=== PATIENT | female | born 1970 | race American Indian/Alaskan Native ===

== ENCOUNTER 2017-06-06 09:43 | Emergency (ER) | payer OTHER ==
[2017-06-06 11:14] LABS: BASO % 0.4 % (0.0-2.0); EOS # 0.1 K/uL (0.0-0.7); EOS % 1.7 % (0.0-4.0); LYMPH % 23.8 % (20.0-40.0); MEAN CELL VOLUME 88.4 fL (81.0-99.0); MEAN CORPUSCULAR HEMOGLOBIN 29.2 pg (27.0-31.0); MEAN CORPUSCULAR HGB CONC 33.1 g/dL (33.0-37.0); MEAN PLATELET VOLUME 8.7 fL (7.2-11.7); MONO # 0.4 K/uL (0.0-0.8); MONO % 5.3 % (0.0-10.0); RED CELL DISTRIBUTION WIDTH 14.7 % (11.5-14.5); WHITE BLOOD COUNT 8.2 K/uL (4.8-10.8)
--- NOTE | 2017-06-06 11:16 | C.PDOC ---
History Of Present Illness 46 yo female w/PMHx of asthma, sz ds, come in for evaluation of diffuse epigastric pain gradually developed for past 3-4 days radiating to back and associated with nausea, decrease appetite, constipation. Pt admits, was seen in ED at [place] 2 days ago, was given some medication without improvement. Pt also reports, difficulty urination and with pain on urination. Otherwise, pt denies fever, chills, headache, dizziness, neck pain, CP, SOB, dyspnea, diaphoresis, palpitation, vomiting, diarrhea, melena, vaginal irritation or discharges. Ambulate to ED for evaluation, appears in pain. Time Seen by Provider: 06/06/17 09:45 Chief Complaint (Nursing): Female Genitourinary History Per: Patient History/Exam Limitations: no limitations Onset/Duration Of Symptoms: Days (3-4) Past Medical History Reviewed: Historical Data, Nursing Documentation, Vital Signs Vital Signs: Last Vital Signs Temp 98.1 F 06/06/17 10:55 Pulse 77 06/06/17 16:05 Resp 18 06/06/17 16:05 BP 132/66 06/06/17 16:05 Pulse Ox 99 06/06/17 17:18 - Medical History PMH: Asthma, Seizures Family History: States: No Known Family Hx - Social History Hx Alcohol Use: No Hx Substance Use: No Review Of Systems Except As Marked, All Systems Reviewed And Found Negative. Constitutional: Negative for: Fever, Chills Cardiovascular: Negative for: Chest Pain, Palpitations Respiratory: Negative for: Shortness of Breath Gastrointestinal: Positive for: Nausea, Abdominal Pain (Epigastric), Constipation. Negative for: Vomiting, Diarrhea, Melena Genitourinary: Positive for: Dysuria. Negative for: Vaginal Discharge Musculoskeletal: Positive for: Back Pain (Radiating pain). Negative for: Neck Pain Neurological: Negative for: Headache, Dizziness Physical Exam - Physical Exam Appears: Well, Non-toxic, Other (in pain) Skin: Normal Color, Warm, Dry, No Rash Head: Normacephalic Eye(s): bilateral: PERRL Nose: No Flaring, No Discharge Oral Mucosa: Moist, No Drooling Throat: No Erythema, No Exudate, No Drooling Neck: Trachea Midline, Supple Cardiovascular: Rhythm Regular Respiratory: No Decreased Breath Sounds, No Accessory Muscle Use, No Stridor, No Wheezing Gastrointestinal/Abdominal: Soft, Tenderness (moderate epigastric), No Distention, No Guarding Back: No CVA Tenderness, Other (B/L flank tenderness) Extremity: Normal ROM, No Pedal Edema, No Deformity Neurological/Psych: Oriented x3, Normal Speech, Normal Motor, Normal Sensation, Normal Reflexes ED Course And Treatment - Laboratory Results Result Diagrams: 06/06/17 11:10 06/06/17 11:10 Lab Interpretation: Normal ECG: Interpreted By Me, Viewed By Me (and ED attending) ECG Rhythm: Sinus Rhythm Interpretation Of ECG: SR@81/min, sinus arrythmia, NAD, T wave inversion in III , no acute ST-T changes. Rate From EC (BPM) O2 Sat by Pulse Oximetry: 99 (RA) Pulse Ox Interpretation: Normal - CT Scan/US CT - Abd & Pelvis w/ IV Contrast Other Rad Studies (CT/US): Read By Radiologist, Radiology Report Reviewed CT/US Interpretation: PROCEDURE: CT Abdomen and Pelvis with contrast. HISTORY : epigastric pain r/o pancreatitis. COMPARISON: None. TECHNIQUE: Contrast dose: 100 mL visipaque. Radiation dose: Total exam DLP = 693 mGy-cm. This CT exam was performed using one or more of the following dose reduction techniques : Automated exposure control, adjustment of the mA and/or kV according to patient size, and/or use of iterative reconstruction technique. FINDINGS: LOWER THORAX: Unremarkable. LIVER: Diffuse fatty infiltration. No liver lesions or intrahepatic dilated ducts. GALLBLADDER AND BILE DUCTS: Moderately distended. No gross gallstones or pericholecystic fluid. No extra hepatic dilated ducts. PANCREAS: Unremarkable. No gross lesion or ductal dilatation. No peripancreatic inflammatory changes. No CT evidence of pancreatitis. SPLEEN : Unremarkable. ADRENALS: Unremarkable. No mass. KIDNEYS AND URETERS: Unremarkable. No hydronephrosis. No solid mass. VASCULATURE: Unremarkable. No aortic aneurysm. BOWEL: Moderate left and right stool retention. No obstruction. No gross mural thickening. APPENDIX: Not definitively identified. No pericecal inflammatory changes. PERITONEUM: Unremarkable. No free fluid. No free air. LYMPH NODES: Unremarkable. No enlarged lymph nodes. BLADDER: Unremarkable. REPRODUCTIVE: Enlarged heterogeneous and lobulated uterus -compatible with multiple fibroids. Probable physiologic small follicular changes in each ovary. BONES: No acute fracture. OTHER FINDINGS: No bowel containing hernias. IMPRESSION: No CT evidence of pancreatitis. Left and right stool retention. No mechanical obstruction. No bowel containing hernias. Nonvisualized appendix -no pericecal inflammatory changes suggested. Enlarged heterogeneous and lobulated uterus -compatible with multiple fibroids. Diffuse fatty liver US gallblader Other Rad Studies (CT/US): Radiology Report Reviewed CT/US Interpretation: HISTORY: epigastric/RUQ pain. COMPARISON: CT abdomen and pelvis with contrast performed 06/06/17. TECHNIQUE: Sonographic evaluation of the right upper quadrant of the abdomen. FINDINGS: LIVER: Measures 13.5 cm in length. Echogenic liver may be seen in setting of hepatic parenchymal disease or fatty infiltration. No focal hepatic mass identified. The main portal vein appears patent with normal directional flow. No intrahepatic bile duct dilatation. GALLBLADDER: No gallstones. No gallbladder wall thickening or pericholecystic edema. Negative sonographic Amaya's sign as assessed by the bellhop captain. COMMON BILE DUCT: Measures 3 mm. PANCREAS: Not well-visualized. RIGHT KIDNEY: Measures 9.3 x 3.6 x 4.4 cm. No obstructing calculus or hydronephrosis identified. AORTA: Limited visualization appears grossly unremarkable. IVC: Limited visualization appears grossly unremarkable. OTHER FINDINGS: None . IMPRESSION: Echogenic liver may be seen in setting of hepatic parenchymal disease or fatty infiltration. Progress Note: AT 12:01, Blood work review, high Lipase,Amylase noted. UA, CT abd/pelvis- pending. Hydartion with NS, NPO. Pt was OBS in ED for 7 hours. Pt reports moderate improvement in sx. On re-evaluation, pt is afebrile, hemodynamicaly stable. NOn-toxic. Tolerate PO well in ED. PUlseOx 100% RA. ENT: no acute findings. Neck: Supple, (-) JVD, (-) carotid bruits B/L. Lungs: CTA B/L, BS equal B/L. CVS: (+)S1S2, reg. ABd: benign, (-) guarding, (-) rebound, (-) localized tenderness. Neuorlogicaly intact. Results review and discussed with ED attending, pt has elevated pancreatic enzyme, no evidence of acute pancreatitis, gallstones. As per , pt is stable for discharge and outpt f/u now. Results review and discussed with patient via silent language interpretor. Pt understand and agrees with discharges. Pt advised to F/U with PMD, GI, NURSE OUTREACH CASE MANAGER for further eval and tx. return to ED if any worsening or new changes. Medical Decision Making Medical Decision Making: PLAN: * CT - Abd & Pelvis w/ IV Contrast * EKG * Troponin * CBC * CMP * Urinalysis * Toradol IVP * Sodium Chloride IV Disposition Counseled Patient/Family Regarding: Studies Performed, Diagnosis, Need For Followup, Rx Given - Disposition Referrals: [facility] at [facility] [Outside] [facility] [Outside] Disposition: HOME/ ROUTINE Disposition Time: 17:40 Condition: STABLE Additional Instructions: DIET RESTRICTION FOR 7 DAYS TAKE MEDICATION PRESCRIBED FOLLOW UP WITH PMD, NURSE OUTREACH CASE MANAGER FOR FURTHER EVALUATION AND TREATMENT. PELVIC/TRANSVAGINAL US RECOMMEND FOR FURTHER EVALUATION OF FIBRIOD. RETURN TO ED IF ANY WORSENING OR NEW CHANGES. Prescriptions: Levetiracetam 1,000 mg PO BID #600 ml Ondansetron [Zofran Odt] 4 mg PO BID #6 odt traMADol [Ultram] 50 mg PO TID #10 tab Instructions: Pancreatitis (ED), Uterine Fibroids (ED) Forms: [employer] (Filipino) - Clinical Impression Clinical Impression: Pancreatitis - PA / ANATOMIC PATHOLOGY ASSISTANT / Resident Statement MD/DO has reviewed & agrees with the documentation as recorded. - Scribe Statement The provider has reviewed the documentation as recorded by the Scribe Tia Proctor All medical record entries made by the Scribe were at my direction and personally dictated by me. I have reviewed the chart and agree that the record accurately reflects my personal performance of the history, physical exam, medical decision making, and the department course for this patient. I have also personally directed, reviewed, and agree with the discharge instructions and disposition.
[2017-06-06] MEDS ORDERED: Sodium Chloride 0.9% 1,000 ML IV ONE ×2 (11:21→16:23)
[2017-06-06 11:24] LABS: INR 0.9
[2017-06-06 11:25] VITALS: TEMP 98.1
[2017-06-06 11:39] LABS: ALKALINE PHOSPHATASE 89 U/L (38-126); ALT/SGPT 37 U/L (9-52); AST/SGOT 23 U/L (14-36); BILIRUBIN,TOTAL 0.5 mg/dL (0.2-1.3); BLOOD UREA NITROGEN 10 mg/dL (7-17); CALCIUM 7.9 mg/dl (8.6-10.4); CARBON DIOXIDE 27 mmol/L (22-30); CHLORIDE 103 mmol/L (98-107); GFR AFRICAN-AMERICAN > 60; GLUCOSE,RANDOM 99 mg/dL (65-105); POTASSIUM 3.9 mmol/L (3.6-5.2); SODIUM 137 mmol/L (132-148); TOTAL PROTEIN 8.9 g/dL (6.3-8.3)
[2017-06-06 11:46] LABS: ALB/GLOB RATIO 0.9 (1.0-2.1)
[2017-06-06 11:48] VITALS: RESP 18
[2017-06-06 12:12] LABS: AMYLASE 131 U/L (30-110)
[2017-06-06 13:40] LABS: RBC URINE 14 /hpf (0-3); URINE BILIRUBIN NEGATIVE (NEGATIVE); URINE BLOOD 3+ (NEGATIVE); URINE COLOR Yellow (YELLOW); URINE GLUCOSE (UA) NORMAL (Normal); URINE KETONE NEGATIVE (NEGATIVE); URINE LEUKOCYTE ESTERASE NEG Leu/uL (Negative); URINE PROTEIN NEGATIVE (NEGATIVE); URINE UROBILINOGEN NORMAL mg/dL (0.2-1.0); WBC URINE 5 /hpf (0-5)
[2017-06-06] MEDS ORDERED: Iodixanol 320 MG/ML 100 ML BOTTLE IV ONE (14:00)
--- NOTE | 2017-06-06 16:04 | CT ---
PROCEDURE: CT Abdomen and Pelvis with contrast HISTORY: epigastric pain r/o pancreatitis COMPARISON: None. TECHNIQUE: Contrast dose: 100 mL visipaque Radiation dose: Total exam DLP = 693 mGy-cm. This CT exam was performed using one or more of the following dose reduction techniques: Automated exposure control, adjustment of the mA and/or kV according to patient size, and/or use of iterative reconstruction technique. FINDINGS: LOWER THORAX: Unremarkable. LIVER: Diffuse fatty infiltration. No liver lesions or intrahepatic dilated ducts GALLBLADDER AND BILE DUCTS: Moderately distended. No gross gallstones or pericholecystic fluid. No extra hepatic dilated ducts PANCREAS: Unremarkable. No gross lesion or ductal dilatation. No peripancreatic inflammatory changes. No CT evidence of pancreatitis. SPLEEN: Unremarkable. ADRENALS: Unremarkable. No mass. KIDNEYS AND URETERS: Unremarkable. No hydronephrosis. No solid mass. VASCULATURE: Unremarkable. No aortic aneurysm. BOWEL: Moderate left and right stool retention. No obstruction. No gross mural thickening. APPENDIX: Not definitively identified. No pericecal inflammatory changes PERITONEUM: Unremarkable. No free fluid. No free air. LYMPH NODES: Unremarkable. No enlarged lymph nodes. BLADDER: Unremarkable. REPRODUCTIVE: Enlarged heterogeneous and lobulated uterus -compatible with multiple fibroids. Probable physiologic small follicular changes in each ovary BONES: No acute fracture. OTHER FINDINGS: No bowel containing hernias IMPRESSION: No CT evidence of pancreatitis. Left and right stool retention. No mechanical obstruction. No bowel containing hernias. Nonvisualized appendix -no pericecal inflammatory changes suggested. Enlarged heterogeneous and lobulated uterus -compatible with multiple fibroids Diffuse fatty liver
--- NOTE | 2017-06-06 17:21 | US ---
HISTORY: epigastric/RUQ pain COMPARISON: CT abdomen and pelvis with contrast performed 06/06/17 TECHNIQUE: Sonographic evaluation of the right upper quadrant of the abdomen. FINDINGS: LIVER: Measures 13.5 cm in length. Echogenic liver may be seen in setting of hepatic parenchymal disease or fatty infiltration. No focal hepatic mass identified. The main portal vein appears patent with normal directional flow. No intrahepatic bile duct dilatation. GALLBLADDER: No gallstones. No gallbladder wall thickening or pericholecystic edema. Negative sonographic Amaya's sign as assessed by the deportation officer. COMMON BILE DUCT: Measures 3 mm. PANCREAS: Not well-visualized. RIGHT KIDNEY: Measures 9.3 x 3.6 x 4.4 cm. No obstructing calculus or hydronephrosis identified. AORTA: Limited visualization appears grossly unremarkable. IVC: Limited visualization appears grossly unremarkable. OTHER FINDINGS: None . IMPRESSION: Echogenic liver may be seen in setting of hepatic parenchymal disease or fatty infiltration.
[2017-06-06 17:51] VITALS: BP 126/85; PULSE 82
[2017-06-06 17:53] VITALS: O2SAT 99
--- NOTE | 2017-06-06 20:48 | CARD ---
APPROVED REPORT EKG Measurement Heart [id number] <Conclusion> Normal sinus rhythm with sinus arrhythmia Normal ECG
== END 2017-06-06 18:13 | disposition home or self-care (01) ==
LOC: C.ER 09:43
DX: K85.90 Acute pancreatitis without necrosis or infection, unspecified (principal)
CPT/HCPCS: 74177; 76705; 80053; 81001; 82150; 83690; 84484; 84703; 85025; 85610; 85730; 87086; 93005; 96361; 96374; 99285; J1885; J7040; Q9967

== ENCOUNTER 2017-06-21 07:52 | Emergency (ER) | payer MEDICAID ==
[2017-06-21] MEDS ORDERED: Sodium Chloride 0.9% 1,000 ML IV ONE (08:20)
[2017-06-21 08:31] VITALS: O2SAT 100; BMI 27.4
--- NOTE | 2017-06-21 08:36 | C.PDOC ---
History Of Present Illness Patient brought to ER from outpatient registration, was scheduled to have transvaginal US. Patient states she went into the bathroom, where she smelled a strong cleaning chemical smell, became dizzy and passed out. She is c/o headache, dizziness, suprapubic pain (present prior to today). She denies chest pain, SOB, palpitations, vomiting. 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) Current Symptoms Are (Timing): Better Activity At Onset Of Symptoms: Standing Fall Associated With With Symptoms: Yes Severity: Mild - Symptoms Of CVA Associated Symptoms: denies: Impaired Speech, Seizure Activity, New Vision Deficit(Left), New Vision Deficit(Right), Decreased Ability To Walk, New Confusion Past Medical History Reviewed: Historical Data, Nursing Documentation, Vital Signs Vital Signs: Last Vital Signs Temp 98.2 F 06/21/17 11:59 Pulse 78 06/21/17 11:59 Resp 20 06/21/17 11:59 BP 138/68 06/21/17 11:59 Pulse Ox 100 06/21/17 12:33 - Medical History PMH: Asthma, Seizures Family History: States: No Known Family Hx - Social History Hx Alcohol Use: No Hx Substance Use: No - Immunization History Hx Influenza Vaccination: No Hx Pneumococcal Vaccination: No Review Of Systems Except As Marked, All Systems Reviewed And Found Negative. Constitutional: Negative for: Fever, Chills Cardiovascular: Negative for: Chest Pain, Palpitations Respiratory: Negative for: Shortness of Breath Gastrointestinal: Positive for: Abdominal Pain. Negative for: Nausea, Vomiting , Diarrhea Skin: Negative for: Rash Neurological: Positive for: Headache, Dizziness. Negative for: Weakness, Numbness, Incoordination, Altered Mental Status Physical Exam - Physical Exam Appears: Well, Non-toxic, In Acute Distress (in mild pain ) Skin: Normal Color, Warm, Dry Head: Atraumatic, Normacephalic Eye(s): bilateral: Normal Inspection Oral Mucosa: Moist Cardiovascular: Rhythm Regular Respiratory: Normal Breath Sounds, No Rales, No Rhonchi, No Wheezing Gastrointestinal/Abdominal: Bowel Sounds, Soft, Tenderness (suprapubic TTP) Extremity: Normal ROM, No Tenderness Extremity: Bilateral: Atraumatic, Normal Color And Temperature, Normal ROM Pulses: Left Dorsalis Pedis: Normal, Right Dorsalis Pedis: Normal Neurological/Psych: Oriented x3 ED Course And Treatment - Laboratory Results Result Diagrams: 06/21/17 09:03 06/21/17 09:03 ECG: Interpreted By Me, Viewed By Me (NSR 72 bpm, normal axis, no acute ST/T wave changes) ECG Interpretation: Normal O2 Sat by Pulse Oximetry: 100 (RA) Pulse Ox Interpretation: Normal - CT Scan/US transvaginal US Other Rad Studies (CT/US): Read By Radiologist, Radiology Report Reviewed CT/US Interpretation: Accession No. : [id number]. Patient Name / ID : CARLOS FRANZ / [id number]. Exam Date : 06/21/2017 11:03:13 ( Approved ). Study Comment : Sex / Age : F / 46Y. Creator : Marisabel Griffin MD. Dictator : Marisabel Griffin MD. Gasoline Engine Inspector : Awning Hanger : Marisabel Griffin MD. Approver2 : Report Date : 06/21/2017 12:24:01. My Comment : . HISTORY: PELVIC PAIN, FIBROIDS? COMPARISON: CT abdomen and pelvis with IV contrast performed 06/06/17. TECHNIQUE: Transvaginal pelvic ultrasound. FINDINGS: UTERUS: Measures 8.2 x 4.9 x 6.0 cm. Retroverted. Numerous probable uterine fibroids. For example: 3.5 x 2.2 x 3.1 cm (mid left uterus); 1.8 x 1.7 x 1.7 cm (mid midline uterus) ; 2.4 x 2.0 x 2.6 cm (right mid uterus) . ENDOMETRIUM: Measures 1.1 cm in diameter. CERVIX: No cervical abnormality identified. RIGHT OVARY: Measures 2.5 x 1.5 x 1.8 cm. Blood flow is demonstrated. LEFT OVARY: Technically difficult to visualize. Measures 3.8 x 2.1 x 3.2 cm. Blood flow is demonstrated. FREE FLUID: Small pelvic free fluid adjacent to the uterine fundus. OTHER FINDINGS: None. IMPRESSION: Retroverted uterus with multiple probable fibroids. Small pelvic free fluid adjacent to the uterine fundus. Progress Note: Blood work, UA, UPreg, EKG ordered and reviewed. Patient given IV NS bolus, IV toradol. Reevaluation Time: 12:45 Reassessment Condition: Improved (Patient reassessed, is resting comfortably and states she feels better; no current dizziness, headache, etc. On exam, abdomen is soft and nontender. Blood work, UA, Upreg unremarkable, and transvaginal US shows uterine fibroids. Patient is comfortable being discharged home, was given Rx for naprosyn. Patient instructed to follow up with her credit administrator within 1 week. She understands she should return to ED if symptoms worsen.) Disposition Counseled Patient/Family Regarding: Studies Performed, Diagnosis, Need For Followup, Rx Given - Disposition Referrals: [facility] [Outside] Disposition: HOME/ ROUTINE Disposition Time: 12:45 Condition: STABLE Prescriptions: Naproxen [Naprosyn] 1 tab PO BID PRN #25 tab PRN Reason: Pain Instructions: Uterine Fibroids (ED) Forms: [employer] (Romansh) Print Language: ARABIC - Clinical Impression Clinical Impression: Inhalation of gaseous substance, Dizziness, Uterine fibroid
[2017-06-21 09:17] LABS: BASO % 0.4 % (0.0-2.0); EOS # 0.2 K/uL (0.0-0.7); HEMATOCRIT 36.1 % (34.0-47.0); LYMPH # 2.5 K/uL (1.0-4.3); LYMPH % 25.8 % (20.0-40.0); MEAN CELL VOLUME 88.5 fL (81.0-99.0); MEAN CORPUSCULAR HEMOGLOBIN 29.8 pg (27.0-31.0); MEAN CORPUSCULAR HGB CONC 33.7 g/dL (33.0-37.0); MEAN PLATELET VOLUME 8.8 fL (7.2-11.7); MONO # 0.7 K/uL (0.0-0.8); RED CELL DISTRIBUTION WIDTH 14.8 % (11.5-14.5); WHITE BLOOD COUNT 9.6 K/uL (4.8-10.8)
[2017-06-21 09:34] LABS: RBC URINE 9 /hpf (0-3); URINE BILIRUBIN NEGATIVE (NEGATIVE); URINE BLOOD 1+ (NEGATIVE); URINE COLOR Yellow (YELLOW); URINE GLUCOSE (UA) NORMAL (Normal); URINE HYALINE CAST 0-2 /lpf (0-2); URINE KETONE NEGATIVE (NEGATIVE); URINE LEUKOCYTE ESTERASE NEG Leu/uL (Negative); URINE PROTEIN NEGATIVE (NEGATIVE); URINE UROBILINOGEN NORMAL mg/dL (0.2-1.0); WBC URINE 1 /hpf (0-5)
[2017-06-21 09:40] LABS: ALB/GLOB RATIO 1.1 (1.0-2.1); ALKALINE PHOSPHATASE 87 U/L (38-126); ALT/SGPT 25 U/L (9-52); AST/SGOT 21 U/L (14-36); BILIRUBIN,TOTAL 0.4 mg/dL (0.2-1.3); BLOOD UREA NITROGEN 14 mg/dL (7-17); CARBON DIOXIDE 26 mmol/L (22-30); CHLORIDE 99 mmol/L (98-107); GFR AFRICAN-AMERICAN > 60; GLUCOSE,RANDOM 103 mg/dL (65-105); POTASSIUM 4.1 mmol/L (3.6-5.2); SODIUM 132 mmol/L (132-148)
[2017-06-21 12:00] VITALS: BP 138/68; PULSE 78; RESP 20; TEMP 98.2
--- NOTE | 2017-06-21 12:25 | US ---
HISTORY: PELVIC PAIN, FIBROIDS? COMPARISON: CT abdomen and pelvis with IV contrast performed 06/06/17 TECHNIQUE: Transvaginal pelvic ultrasound FINDINGS: UTERUS: Measures 8.2 x 4.9 x 6.0 cm. Retroverted. Numerous probable uterine fibroids. For example: 3.5 x 2.2 x 3.1 cm (mid left uterus); 1.8 x 1.7 x 1.7 cm (mid midline uterus) ; 2.4 x 2.0 x 2.6 cm (right mid uterus). ENDOMETRIUM: Measures 1.1 cm in diameter. CERVIX: No cervical abnormality identified. RIGHT OVARY: Measures 2.5 x 1.5 x 1.8 cm. Blood flow is demonstrated. LEFT OVARY: Technically difficult to visualize. Measures 3.8 x 2.1 x 3.2 cm. Blood flow is demonstrated. FREE FLUID: Small pelvic free fluid adjacent to the uterine fundus. OTHER FINDINGS: None. IMPRESSION: Retroverted uterus with multiple probable fibroids. Small pelvic free fluid adjacent to the uterine fundus.
--- NOTE | 2017-06-22 15:44 | CARD ---
APPROVED REPORT EKG Measurement Heart [id number] <Conclusion> Normal sinus rhythm Normal ECG
== END 2017-06-21 12:58 | disposition home or self-care (01) ==
LOC: C.ER 07:52
DX: T59.91XA Toxic effect of unspecified gases, fumes and vapors, accidental (unintentional), initial encounter (principal); R42 Dizziness and giddiness; D25.9 Leiomyoma of uterus, unspecified
CPT/HCPCS: 76830; 80053; 81001; 82948; 84703; 85025; 93005; 96372; 99285; J1885

== ENCOUNTER 2017-08-21 07:09 | Emergency (ER) | payer MEDICAID, OTHER ==
[2017-08-21 07:09] VITALS: BMI 27.4
[2017-08-21 07:53] VITALS: BP 123/72; PULSE 75; RESP 20; TEMP 98.3; O2SAT 98
[2017-08-21 08:51] LABS: HCG,QUALITATIVE URINE NEGATIVE (NEGATIVE)
[2017-08-21 08:55] LABS: SQUAMOUS EPITHIAL 1 /hpf (0-5); URINE BILIRUBIN NEGATIVE (NEGATIVE); URINE BLOOD NEGATIVE (NEGATIVE); URINE CLARITY Clear (Clear); URINE COLOR Colorless (YELLOW); URINE GLUCOSE (UA) NORMAL (Normal); URINE LEUKOCYTE ESTERASE NEG Leu/uL (Negative); URINE NITRATE NEGATIVE (NEGATIVE); URINE PROTEIN NEGATIVE (NEGATIVE); URINE UROBILINOGEN NORMAL mg/dL (0.2-1.0)
--- NOTE | 2017-08-21 08:57 | C.PDOC ---
History Of Present Illness History taken via silent healthcare interpreter 46 yo female w/PMHx of asthma, sz ds, come in for evaluation of intermittent diffuse epigastric pain for past few months. Pt is very concern " urine is changing the different colors for past few months, its might be too dark, then its too light". Pt sts, "today, went to the bathroom and noted urine has color like water, really light" . Pt admits, has similar sx of intermittent diffuse abdominal pain before, when was seen here in ED and different ED, had CT abd/ pelvis performed without acute findings. Otherwise, pt denies fever, chills, headache, dizziness, neck pain, CP, SOB, dyspnea, diaphoresis, palpitation, vomiting, diarrhea, change in appetite, UTI sx, hematuria, back pain. Ambulate to ED for evaluation, not in any apparent distress. Time Seen by Provider: 08/21/17 07:50 Chief Complaint (Nursing): Abdominal Pain History Per: Patient Onset/Duration Of Symptoms: Intermittent Episodes Past Medical History Reviewed: Historical Data, Nursing Documentation, Vital Signs Vital Signs: Last Vital Signs Temp 98.3 F 08/21/17 07:40 Pulse 75 08/21/17 07:40 Resp 20 08/21/17 07:40 BP 123/72 08/21/17 07:40 Pulse Ox 98 08/21/17 09:37 - Medical History PMH: Asthma, Seizures Denies: Chronic Kidney Disease Surgical History: Tonsillectomy Family History: States: No Known Family Hx - Social History Hx Tobacco Use: No Hx Alcohol Use: No Hx Substance Use: No - Immunization History Hx Tetanus Toxoid Vaccination: No Hx Influenza Vaccination: No Hx Pneumococcal Vaccination: No Review Of Systems Except As Marked, All Systems Reviewed And Found Negative. Constitutional: Negative for: Fever, Chills ENT: Negative for: Throat Pain Cardiovascular: Negative for: Chest Pain Respiratory: Negative for: Cough, Shortness of Breath Gastrointestinal: Positive for: Nausea, Abdominal Pain, Constipation. Negative for: Vomiting, Diarrhea Genitourinary: Negative for: Dysuria, Frequency, Incontinence Musculoskeletal: Negative for: Neck Pain, Back Pain Skin: Negative for: Rash Neurological: Negative for: Altered Mental Status Physical Exam - Physical Exam Appears: Well, Non-toxic, No Acute Distress Skin: Normal Color, Warm, Dry, No Rash Head: Normacephalic Eye(s): bilateral: PERRL Nose: No Discharge Oral Mucosa: Moist Neck: Supple Cardiovascular: Rhythm Regular Respiratory: No Decreased Breath Sounds, No Accessory Muscle Use, No Rales, No Rhonchi, No Stridor, No Wheezing Gastrointestinal/Abdominal: Soft, Tenderness (mild peigastric), No Distention, No Guarding, No Rebound Back: No CVA Tenderness Extremity: Normal ROM, No Deformity, No Swelling Neurological/Psych: Oriented x3, Normal Speech ED Course And Treatment O2 Sat by Pulse Oximetry: 98 Pulse Ox Interpretation: Normal - Other Rad Abd, 2 views X-Ray: Interpreted by Me, Viewed By Me Interpretation: (-) air-fluid level, (+) gas pattern c/w constipation Progress Note: results review and discussed with patient again using silent lang. translator/interpreter. On re-evaluation, pt is afebrile, hemodynamicaly stable. Non-toxic. Ambulatory in ED with baseline gait. neck: SUpple, (-) JV, (-) carotid bruits B/L. Lungs: CTA B/L, BS equal B/L. CVS: (+)S1S2, reg. Abd: benign, (-) guarding, (-) rebound. Back: (-) CVA tenderness. UA- normal study. Abd xray review (-) air-fluid level, (+) constipation. Pt has clinical findings c/w diffuse intermittent chr. abd. pain, likely sec to constipation. pt advised. ref. to f/u with PMD, GI in 1-2 days for re-eval. return if anty worsening or new changes. Disposition Counseled Patient/Family Regarding: Studies Performed, Diagnosis, Need For Followup, Rx Given - Disposition Referrals: [facility] [Outside] Ronaldo Manley MD [Staff Provider] - Disposition: HOME/ ROUTINE Disposition Time: 09:27 Condition: STABLE Additional Instructions: Encourage fluids Follow up with PMD in2 -3 days for re-evaluation and further treatment. Return to ED if any worsening or new changes. Prescriptions: Polyethylene Glycol 3350 [Miralax] 17 gm PO DAILY #1 bottle Instructions: High Fiber Diet, Constipation, Adult (DC) Forms: [employer] (Vietnamese) - Clinical Impression Clinical Impression: Constipation
--- NOTE | 2017-08-21 11:08 | RAD ---
HISTORY: pain COMPARISON: None available. FINDINGS: BOWEL: Moderate constipation. Nonobstructive bowel gas pattern. No definite free air. BONES: No acute osseous abnormality is detected. OTHER FINDINGS: None. IMPRESSION: Moderate constipation.
== END 2017-08-21 09:40 | disposition home or self-care (01) ==
LOC: C.ER 07:09
DX: K59.00 Constipation, unspecified (principal)

== ENCOUNTER 2018-07-18 13:19 | Emergency (ER) | payer MEDICAID ==
[2018-07-18 13:19] VITALS: BMI 27.4
[2018-07-18 13:25] VITALS: BP 108/63; PULSE 79; RESP 20; TEMP 98.2; O2SAT 98
[2018-07-18] MEDS ORDERED: Sodium Chloride 0.9% 1,000 ML IV ONE (13:59)
[2018-07-18] MEDS ORDERED: Sodium Chloride 0.9% 1,000 ML ONE (14:18)
--- NOTE | 2018-07-18 18:09 | C.PDOC ---
History Of Present Illness 47 y/o female,w/PMhx of asthma and seizure disorder, presents to the ER complaining of suprapubic and right sided abdominal and flank pain which began in the morning today. Patient rates the pain 8/10. Patient that she has a bowel movement everyday. However, she did not have bowel movement today. Patient reports that she has associated nausea and vomiting phlegm. She notes that she did not take any medications for the pain. 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 Time Seen by Provider: 07/18/18 13:33 Chief Complaint (Nursing): Female Genitourinary History Per: Radiology Practitioner Assistant ([employer] Grinder Operator # [id number]) History/Exam Limitations: no limitations Onset/Duration Of Symptoms: Days Current Symptoms Are (Timing): Still Present Severity: Moderate Past Medical History Reviewed: Historical Data, Nursing Documentation, Vital Signs Vital Signs: Last Vital Signs Temp 98.2 F 07/18/18 13:23 Pulse 79 07/18/18 13:23 Resp 20 07/18/18 13:23 BP 108/63 07/18/18 13:23 Pulse Ox 98 07/18/18 13:23 - Medical History PMH: Asthma, Seizures Denies: Chronic Kidney Disease Surgical History: Tonsillectomy Family History: States: No Known Family Hx - Social History Hx Tobacco Use: No Hx Alcohol Use: No Hx Substance Use: No - Immunization History Hx Tetanus Toxoid Vaccination: No Hx Influenza Vaccination: No Hx Pneumococcal Vaccination: No Review Of Systems Except As Marked, All Systems Reviewed And Found Negative. Constitutional: Negative for: Fever, Chills Gastrointestinal: Positive for: Abdominal Pain. Negative for: Nausea, Vomiting, Diarrhea Genitourinary: Negative for: Dysuria, Hematuria Physical Exam - Physical Exam Appears: Other (uncomfortable) Skin: Normal Color, Warm, Dry Head: Atraumatic, Normacephalic Eye(s): bilateral: Normal Inspection Nose: Normal Oral Mucosa: Moist Neck: Supple Chest: Symmetrical Cardiovascular: Rhythm Regular Respiratory: Normal Breath Sounds, No Rales, No Rhonchi, No Wheezing Gastrointestinal/Abdominal: Soft, Tenderness (suprapubic and right sided abdominal tenderness), No Guarding, No Rebound Back: CVA Tenderness (right sided CVA tenderness) Neurological/Psych: Oriented x3 ED Course And Treatment O2 Sat by Pulse Oximetry: 98 (RA) Pulse Ox Interpretation: Normal Medical Decision Making Medical Decision Making: Plan: --Labs --CT - Abd & Pelv. --IV Fluids --Toradol IV Updates: :34 Patient was sitting next to patient who was coughing. Patient was concerned that she may develop flu. She was offered mask but she decline. I reviewed the handwritten notes between the nurse and the patient which indicated that patient wanted to leave. Patient eloped before undergoing treatment. Disposition - Disposition Disposition: ELOPEMENT - ER ONLY Disposition Time: :34 Condition: STABLE Forms: [employer] (Nigerian) - Clinical Impression Clinical Impression: Flank pain - Scribe Statement The provider has reviewed the documentation as recorded by the Logan Alonso Provider Attestation: All medical record entries made by the Scribe were at my direction and personally dictated by me. I have reviewed the chart and agree that the record accurately reflects my personal performance of the history, physical exam, medical decision making, and the department course for this patient. I have also personally directed, reviewed, and agree with the discharge instructions and disposition.
[2018-07-18] MEDS ORDERED: Bacitracin 500 Units/gm Oint Foilpak UD ONE (22:00)
[2018-07-18] MEDS ORDERED: Tetanus/Diphtheria Toxoids 0.5 ml Syringe IM ONE (22:01)
== END 2018-07-18 13:48 | disposition left against medical advice (07) ==
LOC: C.ER 13:19
DX: R10.9 Unspecified abdominal pain (principal)

== ENCOUNTER 2018-07-18 15:44 | Emergency (ER) | payer MEDICAID ==
[2018-07-18 15:44] VITALS: BMI 27.4
[2018-07-18 16:10] VITALS: RESP 18
[2018-07-18] MEDS ORDERED: Sodium Chloride 0.9% 1,000 ML IV ONE (16:40)
--- NOTE | 2018-07-18 17:09 | CT ---
Date of service: 07/18/2018 PROCEDURE: CT Abdomen and Pelvis without intravenous contrast HISTORY: r flank pain COMPARISON: 06/06/2017 TECHNIQUE: Without contrast.. Contrast dose: 0 Radiation dose: Total exam DLP = 370.88 mGy-cm. This CT exam was performed using one or more of the following dose reduction techniques: Automated exposure control, adjustment of the mA and/or kV according to patient size, and/or use of iterative reconstruction technique. FINDINGS: LOWER THORAX: Unremarkable. LIVER: Unremarkable. No gross lesion or ductal dilatation. GALLBLADDER AND BILE DUCTS: Unremarkable. PANCREAS: Unremarkable. No gross lesion or ductal dilatation. SPLEEN: Unremarkable. ADRENALS: Unremarkable. No mass. KIDNEYS AND URETERS: No mass, calculus or hydronephrosis. No hydroureter or ureteral calculus. VASCULATURE: Unremarkable. No aortic aneurysm. No aortic atherosclerotic calcification or mural plaque present. BOWEL: Unremarkable. No obstruction. No gross mural thickening. APPENDIX: Unremarkable. Normal appendix. PERITONEUM: Unremarkable. No free fluid. No free air. LYMPH NODES: Unremarkable. No enlarged lymph nodes. BLADDER: Nondistended REPRODUCTIVE: Globular multi fibroid uterus. BONES: No acute fracture. Minimal thoracolumbar dextroscoliosis. OTHER FINDINGS: None. IMPRESSION: No evidence of urinary calculus or urinary tract obstruction. Globular multi fibroid uterus. No other significant abnormality
[2018-07-18 17:52] LABS: BASO # 0.1 K/uL (0.0-0.2); BASO % 0.5 % (0.0-2.0); EOS # 0.2 K/uL (0.0-0.7); EOS % 2.1 % (0.0-4.0); HEMOGLOBIN 13.2 g/dL (11.0-16.0); LYMPH # 2.9 K/uL (1.0-4.3); LYMPH % 25.2 % (20.0-40.0); MEAN CELL VOLUME 89.8 fL (81.0-99.0); MEAN CORPUSCULAR HEMOGLOBIN 29.2 pg (27.0-31.0); MEAN CORPUSCULAR HGB CONC 32.6 g/dL (33.0-37.0); MEAN PLATELET VOLUME 9.3 fL (7.2-11.7); MONO # 0.6 K/uL (0.0-0.8); MONO % 4.9 % (0.0-10.0); NEUT # 7.6 K/uL (1.8-7.0); NEUT % 67.3 % (50.0-75.0); NRBC % 0.1 % (0.0-2.0); RBC 4.53 Mil/uL (3.80-5.20); WHITE BLOOD COUNT 11.4 K/uL (4.8-10.8)
[2018-07-18 18:11] LABS: SQUAMOUS EPITHIAL 17 /hpf (0-5); URINE BILIRUBIN NEGATIVE (NEGATIVE); URINE BLOOD 1+ (NEGATIVE); URINE CALCIUM OXALATE CRYSTALS MANY /hpf (<OCC); URINE CLARITY Hazy (Clear); URINE COLOR Amber (YELLOW); URINE GLUCOSE (UA) NORMAL (Normal); URINE LEUKOCYTE ESTERASE NEG Leu/uL (Negative); URINE PROTEIN 1+ mg/dL (NEGATIVE); URINE UROBILINOGEN NORMAL mg/dL (0.2-1.0)
[2018-07-18 18:12] LABS: ALB/GLOB RATIO 1.4 (1.0-2.1); ALBUMIN 4.9 g/dL (3.5-5.0); ALT/SGPT 11 U/L (9-52); AST/SGOT 24 U/L (14-36); BLOOD UREA NITROGEN 12 mg/dL (7-17); CALCIUM 8.5 mg/dl (8.6-10.4); GFR NON-AFRICAN AMERICAN > 60; LIPASE 191 U/L (23-300)
--- NOTE | 2018-07-18 18:20 | C.PDOC ---
History Of Present Illness 47 y/o female,w/PMhx of asthma and seizure disorder, presents to the ER complaining of suprapubic and right sided abdominal and flank pain which began in the morning today. Patient rates the pain 8/10. Patient that she has a bowel movement everyday. However, she did not have bowel movement today. Patient reports that she has associated nausea and vomiting phlegm. She notes that she did not take any medications for the pain. Of note, HPI was obtained with the help of an [place]ian traffic signal supervisor maintenance because patient is deaf mute. Of note, patient eloped during her first visit to ER today. Time Seen by Provider: 07/18/18 16:36 Chief Complaint (Nursing): Abdominal Pain History Per: Massage Therapy Instructor ( advanced practice nurse # [id number] Rafa) History/Exam Limitations: no limitations Onset/Duration Of Symptoms: Days Current Symptoms Are (Timing): Still Present Severity: Moderate Past Medical History Reviewed: Historical Data, Nursing Documentation, Vital Signs Vital Signs: Last Vital Signs Temp 98 F 07/18/18 16:06 Pulse 85 07/18/18 16:06 Resp 18 07/18/18 16:06 BP 122/76 07/18/18 16:06 Pulse Ox 95 07/18/18 16:06 - Medical History PMH: Asthma, Seizures Denies: Chronic Kidney Disease Surgical History: Tonsillectomy Family History: States: No Known Family Hx - Social History Hx Tobacco Use: No Hx Alcohol Use: No Hx Substance Use: No - Immunization History Hx Tetanus Toxoid Vaccination: No Hx Influenza Vaccination: No Hx Pneumococcal Vaccination: No Review Of Systems Except As Marked, All Systems Reviewed And Found Negative. Constitutional: Negative for: Fever, Chills Gastrointestinal: Positive for: Abdominal Pain. Negative for: Nausea, Vomiting Genitourinary: Negative for: Dysuria, Hematuria Physical Exam - Physical Exam Appears: Other (uncomfortable) Skin: Normal Color, Warm, Dry Head: Atraumatic, Normacephalic Eye(s): bilateral: Normal Inspection Nose: Normal Oral Mucosa: Moist Neck: Supple Chest: Symmetrical Cardiovascular: Rhythm Regular Respiratory: Normal Breath Sounds, No Rales, No Rhonchi, No Wheezing Gastrointestinal/Abdominal: Soft, Tenderness (suprapubic and right sided abdominal tenderness), No Guarding, No Rebound Back: CVA Tenderness (right sided CVA tenderness) Neurological/Psych: Oriented x3 ED Course And Treatment - Laboratory Results Result Diagrams: 07/18/18 17:43 07/18/18 17:43 Lab Results: Total Bilirubin 0.8 mg/dL (0.2-1.3) 07/18/18 17:43 AST 24 U/L (14-36) 07/18/18 17:43 ALT 11 U/L (9-52) 07/18/18 17:43 Alkaline Phosphatase 88 U/L (38-126) 07/18/18 17:43 Total Protein 8.3 g/dL (6.3-8.3) 07/18/18 17:43 Albumin 4.9 g/dL (3.5-5.0) 07/18/18 17:43 Globulin 3.5 gm/dL (2.2-3.9) 07/18/18 17:43 Albumin/Globulin Ratio 1.4 (1.0-2.1) 07/18/18 17:43 Lipase 191 U/L (23-300) 07/18/18 17:43 Urine Color [place] (YELLOW) 07/18/18 17:43 Urine Clarity Hazy (Clear) 07/18/18 17:43 Urine pH 5.0 (5.0-8.0) 07/18/18 17:43 Ur Specific [place] 1.030 (1.003-1.030) 07/18/18 17:43 Urine Protein 1+ mg/dL (NEGATIVE) H 07/18/18 17:43 Urine Glucose (UA) Normal mg/dL (Normal) 07/18/18 17:43 Urine Ketones Negative mg/dL (NEGATIVE) 07/18/18 17:43 Urine Blood 1+ (NEGATIVE) H 07/18/18 17:43 Urine Nitrate Negative (NEGATIVE) 07/18/18 17:43 Urine Bilirubin Negative (NEGATIVE) 07/18/18 17:43 Urine Urobilinogen Normal mg/dL (0.2-1.0) 07/18/18 17:43 Ur Leukocyte Esterase Neg Mar/uL (Negative) 07/18/18 17:43 Urine WBC (Auto) 3 /hpf (0-5) 07/18/18 17:43 Urine RBC (Auto) 7 /hpf (0-3) H 07/18/18 17:43 Ur Squamous Epith Cells 17 /hpf (0-5) H 07/18/18 17:43 Calcium Oxalate Crystal Many /hpf (<OCC) H 07/18/18 17:43 O2 Sat by Pulse Oximetry: 95 (RA) Pulse Ox Interpretation: Normal Medical Decision Making Medical Decision Making: Plan: --Labs --UA --CXR --CT-Abd &Pelv. --IV Fluids Updates: 18:30 UA showed signs of blood and calcium oxalate crystals were found in urine. Patient was informed that she may have passed kidney stone. Patient has been discharged and instructed to follow up with PMD. Disposition Counseled Patient/Family Regarding: Studies Performed, Diagnosis, Need For Followup - Disposition Disposition: HOME/ ROUTINE Disposition Time: 18:34 Condition: STABLE Additional Instructions: MARIA M GONZALEZ, thank you for letting us take care of you today. Your provider was Mariana Mccurdy MD and you were treated for ABD PAINS/UNABLE TO URINATE. The emergency medical care you received today was directed at your acute symptoms. If you were prescribed any medication, please fill it and take as directed. It may take several days for your symptoms to resolve. Return to the Emergency Department if your symptoms worsen, do not improve, or if you have any other problems. Please contact your doctor in 1-2 days for a follow up visit. Bring any paperwork you were given at discharge with you along with any medications you are taking to your follow up visit. Our treatment cannot replace ongoing medical care by a primary care provider outside of the emergency department. Thank you for allowing the [facility] team to be part of your care today. If you had an X-Ray or CT scan: A Radiologist will review the ED reading if any change in treatment is needed we will contact you. If you had a blood, urine, or wound culture: It will take several days for the results, if any change in treatment is needed we will contact you. If you had an STI test: It will take 48 hours for the results. Please call after 1 week if you have not heard back. Prescriptions: Nitrofurantoin Macrocrystals [Macrobid] 100 mg PO BID #14 cap Instructions: Flank Pain (DC), Blood in the Urine (Hematuria), Adult (DC) Forms: [employer] (Sammarinese) - POA Present On Arrival: None - Clinical Impression Clinical Impression: Flank pain, Hematuria - Scribe Statement The provider has reviewed the documentation as recorded by the Scribe Shahram Alonso Provider Attestation: All medical record entries made by the Scribe were at my direction and personally dictated by me. I have reviewed the chart and agree that the record accurately reflects my personal performance of the history, physical exam, medical decision making, and the department course for this patient. I have also personally directed, reviewed, and agree with the discharge instructions and disposition.
[2018-07-18 18:47] VITALS: BP 108/69; PULSE 74; TEMP 98.2
[2018-07-18 19:03] VITALS: O2SAT 95
== END 2018-07-18 18:48 | disposition home or self-care (01) ==
LOC: C.ER 15:44
DX: R10.9 Unspecified abdominal pain (principal); R31.9 Hematuria, unspecified

== ENCOUNTER 2018-10-03 11:14 | Emergency (ER) | payer MEDICAID ==
[2018-10-03 11:15] VITALS: BMI 27.4
[2018-10-03 11:27] VITALS: TEMP 98.1
[2018-10-03 12:24] LABS: SQUAMOUS EPITHIAL 11 /hpf (0-5); URINE BILIRUBIN NEGATIVE (NEGATIVE); URINE BLOOD NEGATIVE (NEGATIVE); URINE CLARITY Hazy (Clear); URINE COLOR Yellow (YELLOW); URINE GLUCOSE (UA) NORMAL (Normal); URINE LEUKOCYTE ESTERASE NEG Leu/uL (Negative); URINE PROTEIN NEGATIVE (NEGATIVE); URINE UROBILINOGEN NORMAL mg/dL (0.2-1.0)
[2018-10-03 12:26] LABS: HCG,QUALITATIVE URINE NEGATIVE (NEGATIVE)
--- NOTE | 2018-10-03 12:39 | C.PDOC ---
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 Patient states she has a sore throat, worse when swallowing, associated with cough. Reports fever 2 days ago, now resolved. Also reports dysuria, frequent urination x months on and off. Patient states she had recent biopsy performed but did not want to inform about the details of the biopsy more. Time Seen by Provider: 10/03/18 11:40 Chief Complaint (Nursing): Female Genitourinary History/Exam Limitations: language barrier (used [employer] sign language video shirring tender) Past Medical History Vital Signs: Last Vital Signs Temp 98.1 F 10/03/18 11:26 Pulse 79 10/03/18 11:26 Resp 20 10/03/18 11:26 BP 127/64 10/03/18 11:26 Pulse Ox 99 10/03/18 11:26 - Medical History PMH: Asthma, Seizures Denies: Chronic Kidney Disease Surgical History: Tonsillectomy Family History: States: No Known Family Hx - Social History Hx Tobacco Use: No Hx Alcohol Use: No Hx Substance Use: No - Immunization History Hx Tetanus Toxoid Vaccination: No Hx Influenza Vaccination: No Hx Pneumococcal Vaccination: No Review Of Systems Except As Marked, All Systems Reviewed And Found Negative. Constitutional: Negative for: Fever Gastrointestinal: Negative for: Vomiting Physical Exam - Physical Exam Additional Physical Exam Comments: gen nad head at eyes perrl ent pharyngeal erythema, no exudates or tonsillar hypertrophy neck r tender lymphadenopathy chest no tenderness cv reg rate abd suprapubic tenderness back no cva tenderness skin no rash neuro alert ED Course And Treatment - Laboratory Results Lab Results: Urine Color Yellow (YELLOW) 10/03/18 12:15 Urine Clarity Hazy (Clear) 10/03/18 12:15 Urine pH 7.0 (5.0-8.0) 10/03/18 12:15 Ur Specific [place] 1.016 (1.003-1.030) 10/03/18 12:15 Urine Protein Negative mg/dL (NEGATIVE) 10/03/18 12:15 Urine Glucose (UA) Normal mg/dL (Normal) 10/03/18 12:15 Urine Ketones Negative mg/dL (NEGATIVE) 10/03/18 12:15 Urine Blood Negative (NEGATIVE) 10/03/18 12:15 Urine Nitrate Negative (NEGATIVE) 10/03/18 12:15 Urine Bilirubin Negative (NEGATIVE) 10/03/18 12:15 Urine Urobilinogen Normal mg/dL (0.2-1.0) 10/03/18 12:15 Ur Leukocyte Esterase Neg Mar/uL (Negative) 10/03/18 12:15 Urine WBC (Auto) 4 /hpf (0-5) 10/03/18 12:15 Urine RBC (Auto) 7 /hpf (0-3) H 10/03/18 12:15 Ur Squamous Epith Cells 11 /hpf (0-5) H 10/03/18 12:15 Urine HCG, Qual Negative (NEGATIVE) 10/03/18 12:15 Urine HCG, Qual Negative (NEGATIVE) 10/03/18 12:15 O2 Sat by Pulse Oximetry: 99 Disposition - Disposition Disposition: HOME/ ROUTINE Disposition Time: 12:49 Condition: GOOD Prescriptions: Azithromycin [Zithromax] 2 tab PO DAILY #6 tab Instructions: Dysuria, Adult (DC), Sore Throat in Adults Forms: [facility] (Slovenian) - Clinical Impression Clinical Impression: Pharyngitis, Dysuria
[2018-10-03 13:06] VITALS: BP 127/72; PULSE 75; RESP 18; O2SAT 97
== END 2018-10-03 13:08 | disposition home or self-care (01) ==
LOC: C.ER 11:14
DX: J02.9 Acute pharyngitis, unspecified (principal); R30.0 Dysuria